=== PATIENT | female | born 1990 | race Hispanic/Latino ===

== ENCOUNTER → 2019-02-01 | Outpatient (CLI) | payer OTHER ==
[2019-02-01 12:57] LABS: HEMATOCRIT 31.9 % (36.0-47.0); HEMOGLOBIN 9.2 g/dl (12.0-15.5); MEAN CORPUSCULAR HEMOGLOBIN 21.1 pg (27.0-33.0); MEAN CORPUSCULAR HGB CONC 28.8 g/dl (32.0-36.5); MEAN CORPUSCULAR VOLUME 73.2 fl (80.0-96.0); PLATELET COUNT, AUTOMATED 318 10^3/uL (150-450); RED BLOOD COUNT 4.36 10^6/uL (4.00-5.40); WHITE BLOOD COUNT 7.9 10^3/uL (4.0-10.0)
== END ==
LOC: M LAB 12:08
PROVIDERS: ATTEND Obstetrics & Gynecology
DX: O99.03 Anemia complicating the puerperium (principal); Z3A.00 Weeks of gestation of pregnancy not specified

== ENCOUNTER 2020-09-10 13:17 | Emergency (ER) | payer OTHER ==
[~2020-09-10] VITALS: Ht 162.6 cm; Wt 96.0 kg
--- NOTE | 2020-09-10 13:52 | REP ---
INDICATION: Arm pain COMPARISON: None. TECHNIQUE: Three views right shoulder. FINDINGS: There is no evidence of acute fracture, dislocation, or intrinsic bone disease. IMPRESSION: No fracture or dislocation. <Electronically signed by Dinesh Neves > 09/10/20 [id number]
[2020-09-10] MEDS ORDERED: CYCL5TAB PO (14:24)
[2020-09-10] MEDS ORDERED: KETOROLAC 60MG 2ML VIAL IM ONE (14:30)
[2020-09-10 15:04] VITALS: BP 123/73
== END 2020-09-10 15:06 | disposition home or self-care (01) ==
LOC: M ED 13:17
DX: S46.011A Strain of muscle(s) and tendon(s) of the rotator cuff of right shoulder, initial encounter (principal); X58.XXXA Exposure to other specified factors, initial encounter; Y92.89 Other specified places as the place of occurrence of the external cause; M75.21 Bicipital tendinitis, right shoulder
CPT/HCPCS: 73030; 96372; 99283; J1885

== ENCOUNTER 2021-02-16 15:42 | Emergency (ER) | payer OTHER ==
[~2021-02-16] VITALS: Ht 154.9 cm; Wt 93.2 kg
[~2021-02-16 15:42] MED LIST: CYCL5TAB PO
[2021-02-16 15:43] VITALS: BP 131/83
[2021-02-16] MEDS ORDERED: GOOD200C PO (15:48)
== END 2021-02-16 20:39 | disposition home or self-care (01) ==
LOC: M ED 15:42
DX: H00.014 Hordeolum externum left upper eyelid (principal)

== ENCOUNTER 2021-07-30 13:28 | Emergency (ER) | payer OTHER ==
[~2021-07-30] VITALS: Ht 162.6 cm; Wt 90.9 kg
[~2021-07-30 13:28] MED LIST changes: +GOOD200C PO
--- OUTSIDE RECORDS SUMMARY | 2021-07-30 13:37 | CCD ---
Author Author [facility] Organization [facility] Address Unknown Phone Unavailable Care Team Providers Care Elevator Operator Name Role Phone Emerita ROLAND Unavailable Unavailable [facility], [facility] Unavailable Unavailable SHANNON KING Unavailable Unavailable Re-disclosure Warning The records that you are about to access may contain information from federally-assisted alcohol or drug abuse programs. If such information is present, then the following federally mandated warning applies: This information has been disclosed to you from records protected by federal confidentiality rules (42 CFR part 2). The federal rules prohibit you from making any further disclosure of this information unless further disclosure is expressly permitted by the written consent of the person to whom it pertains or as otherwise permitted by 42 CFR part 2. A general authorization for the release of medical or other information is NOT sufficient for this purpose. The Federal rules restrict any use of the information to criminally investigate or prosecute any alcohol or drug abuse patient.The records that you are about to access may contain highly sensitive health information, the redisclosure of which is protected by Article 27-F of the [facility] Public Health law. If you continue you may have access to information: Regarding HIV / AIDS; Provided by facilities licensed or operated by the [facility] Office of Mental Health; or Provided by the [facility] Office for People With Developmental Disabilities. If such information is present, then the following [facility] mandated warning applies: This information has been disclosed to you from confidential records which are protected by state law. State law prohibits you from making any further disclosure of this information without the specific written consent of the person to whom it pertains, or as otherwise permitted by law. Any unauthorized further disclosure in violation of state law may result in a fine or mcfp sentence or both. A general authorization for the release of medical or other information is NOT sufficient authorization for further disc losure. Encounters Encounter Providers Location Date Indications Data Source(s ) Outpatient Attender: BELKYS ROLAND 01/08/2021 03:24:16 PM EDT - 02/17/2021 03:43:00 PM EDT [facility] Patient discharged. Outpatient Attender: SHANNON KINGConsultant: CLINIC GUTHR IE 11/13/2020 09:32:00 AM EDT - 11/13/2020 10:32:00 AM EDT [facility] Patient discharged. Immunizations Vaccine Date Status Description Data Source(s) COVID-19 VACCINE Pfizer 10/22/2020 12:00:00 AM EST completed NYSIIS Vaccine Series Complete: NOThis Data was Submitted to [facility] Via [email or web address]. Medications No Information Insurance Providers Payer name Policy type / Coverage type Policy ID Covered green party ID Covered green party's relationship to dominguez Policy Dominguez Plan Information [facility] [id number] [facility] [id number] [facility] [id number] 01 [id number] [facility] - O/P [id number] 01 [id number] [facility] REG O [id number] S [id number] [facility] [id number] [facility] [id number] Problems, Conditions, and Diagnoses Code Display Name Description Problem Type Effective Dates Data Source(s) R201 Hypoesthesia of skin Hypoesthesia of skin Diagnosis 01/09/2021 10:10:00 AM EDT [facility] [id number] Incomplete rotator cuff tear or rupture of right shoulder, not specified as traumatic Incomplete rotator cuff tear or rupture of right shoulder, not specified as traumatic Diagnosis 11/13/2020 09:32:[address] [facility] [id number] Unspecified disorder of synovium and ten don, right shoulder Unspecified disorder of synovium and tendon, right shoulder Diagnosis 2020 09:32:00 AM T [facility] [id number] Pain in right shoulder Pain in right shoulder Diagnosi s 11/13/2020 09:32:00 AM EDT [facility] Surgeries/Procedures No Information Results ID Date Data Source [id number] 11/14/2020 10:11:00 AM EDT [facility] [address] [place] [address] PHONE: [phone] FAX: [phone] Name .................. : MARTHA OLIVERA Unique Acct Number.................. : [id number] ROOM. ................. : Number ................... : [id number] Stay type ............. : O/P Discharge Date......... ... : 11/13/20 Admit Date ....... .. : 11/13/20 Admit Phys .................... : FERNANDO CRISOSTOMO Date of ....... : 1990 Family Phys ................... : UNKNOWN Phone .................. : [phone] Age ................................ : 30 Film# .................. .:[id number] Sex ................................. : F Unsigned transcriptions are preliminary reports and do not represent a medical or legal document MRI UPPER EXT JOINT W CONT RT [id number] COMPLETE:11/13/20 15:02 [facility] 9236 (REASON FOR PROCESS: PAIN MRI OF THE RIGHT SHOULDER WITH CONTRAST: FINDINGS: There is contrast seen in the glenohumeral joint and around the humeral head status post earlier intra- articular contrast injection/arthrogram. There is some intermediate signal intensity at the supraspinatus tendon from partial/intrasubstance tears. There are linear defects with increased signal intensity on the T2- weighted images at the supraspinatus tendon from partial/intrasubstance tears. The labrum and biceps tendons are intact. No fracture or dislocation is identified. There is a type 2 acromion process. 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 Electronically Reviewed and Signed By Oneil Mcpherson MD , 11/14/20 10:12, TDS Transcribe Initials: MONAE , Transcribe Date: 11/14/20 02:16, Dictation Date: Copy for: FERNANDO ORTEGA Copy for: [address] [place] [address] Page 1 of 1 Name Value Range Interpretation Code Description Data Nely rce(s) Supporting Document(s) ID Date Data Source [id number] 11/14/2020 10:09:00 AM EDT [facility] [address] [place] [address] PHONE: [phone] FAX: [phone] Name .................. : MARTHA DANIELSMARISOL Calhoun Acct Number.................. : [id number] ROOM. ................. : MR Number ................... : [id number] Stay type ............. : O/P Discharge Date......... ... : 11/13/20 Admit Date ....... .. : 11/13/20 Admit Phys .................... : FERNANDO CRISOSTOMO Date of ....... : 1990 Family Phys ................... : UNKNOWN Phone .................. : [phone] Age ................................ : 30 Film# .................. .:[id number] Sex ................................. : F Unsigned transcriptions are preliminary reports and do not represent a medical or legal document INJECTION FOR SHOULDER ARTHRO [id number] COMPLETE:11/13/20 09:35 6937 (REASON FOR PROCESS: PAIN SHOULDER 1 VIEW RT [id number] COMPLETE:11/13/20 09:35 6939 (REASON FOR PROCESS: PAIN FLUOROSCOPIC EXAMINATION OF THE RIGHT SHOULDER FOR ARTHROGRAM, 11/13/20: FINDINGS: Internal Communications Specialist film shows no acute findings. PROCEDURE: The benefits and risks of the examination were discussed with the patient. The patient has given informed consent for the procedure. A time out was performed confirming the right shoulder is the proper shoulder for today's examination. The skin surface was marked using fluoroscopic guidance. The skin was prepped and dressed in normal sterile fashion. Superficial and deep Lidocaine administration was performed with a 25-gauge needle. A 22- gauge spinal needle was then placed and advanced under fluoroscopic guidance. The needle was passed into the joint space at which time iodinated contrast was administered to confirm proper placement. Approximately 5 cc of iodinated contrast was administered. Once the proper placement was confirmed, approximat celia 7 cc of 1:200 Gadolinium solution was administered. The needle was then removed. The skin was cleansed and bandaged. No complications were experienced during the procedure. Three images were obtained, 2 seconds of fluoroscopy. Page 1 of 2 [place] [address] PHONE: [phone] FAX: [phone] Name .................. : MARTHA Calhoun Acct Number.................. : [id number] ROOM. ................. : MR Number ................... : [id number] Stay type ............. : O/P Discharge Date......... ... : 11/13/20 Admit Date ......... : 11/13/20 Admit Phys .................... : FERNANDO CRISOSTOMO Date of ....... : 1990 Family Phys ................... : UNKNOWN Phone .................. : [phone] Age ................................ : 30 Film# .................. .:[id number] Sex ................................. : F Unsigned transcriptions are preliminary reports and do not represent a medical or legal document INJECTION FOR SHOULDER ARTHRO [id number] COMPLETE:11/13/20 09:35 6937 (REASON FOR PROCESS: PAIN SHOULDER 1 VIEW RT [id number] COMPLETE:11/13/20 09:35 6939 (REASON FOR PROCESS: PAIN Examination dictated by KIYA Elizabeth. Examination was reviewed with Oneil Mcpherson MD, radiologist at the time of this dictation. Electronically Reviewed and Signed By Oneil Mcpherson MD , 11/14/20 10:09, TDS Transcribe Initials: SSR, Transcribe Date: 11/13/20 13:25, Dictation Date: Copy for: FERNANDO ORTEGA Copy for: [address] [place] [address] REC Page 2 of 2 Name Value Range Interpretation Code Description Data Nely rce(s) Supporting Document(s) ID Date Data Source [id number] 11/14/2020 10:09:00 AM EDT [facility] [address] [place] [address] PHONE: [phone] FAX: [phone] Name .................. : THOMASAMIRAH DANIELSMARISOL Calhoun Acct Number.................. : [id number] ROOM. ................. : MR Number ................... : [id number] Stay type ............. : O/P Discharge Date......... ... : 11/13/20 Admit Date ....... .. : 11/13/20 Admit Phys .................... : FERNANDO CRISOSTOMO Date of ....... : 1990 Family Phys ................... : UNKNOWN Phone .................. : [phone] Age ................................ : 30 Film# .................. .:[id number] Sex ................................. : F Unsigned transcriptions are preliminary reports and do not represent a medical or legal document INJECTION FOR SHOULDER ARTHRO [id number] COMPLETE:11/13/20 09:35 6937 (REASON FOR PROCESS: PAIN SHOULDER 1 VIEW RT [id number] COMPLETE:11/13/20 09:35 6939 (REASON FOR PROCESS: PAIN FLUOROSCOPIC EXAMINATION OF THE RIGHT SHOULDER FOR ARTHROGRAM, 11/13/20: FINDINGS: Internal Communications Specialist film shows no acute findings. PROCEDURE: The benefits and risks of the examination were discussed with the patient. The patient has given informed consent for the procedure. A time out was performed confirming the right shoulder is the proper shoulder for today's examination. The skin surface was marked using fluoroscopic guidance. The skin was prepped and dressed in normal sterile fashion. Superficial and deep Lidocaine administration was performed with a 25-gauge needle. A 22- gauge spinal needle was then placed and advanced under fluoroscopic guidance. The needle was passed into the joint space at which time iodinated contrast was administered to confirm proper placement. Approximately 5 cc of iodinated contrast was administered. Once the proper placement was confirmed, approximat celia 7 cc of 1:200 Gadolinium solution was administered. The needle was then removed. The skin was cleansed and bandaged. No complications were experienced during the procedure. Three images were obtained, 2 seconds of fluoroscopy. Page [address] [place] [address] PHONE: [phone] FAX: [phone] Name .................. : MARTHA Calhoun Acct Number.................. : [id number] ROOM. ................. : Number ................... : [id number] Stay type ............. : O/P Discharge Date......... ... : 11/13/20 Admit Date ......... : 11/13/20 Admit Phys .................... : FERNANDO CRISOSTOMO Date of ....... : 1990 Family Phys ................... : UNKNOWN Phone .................. : [phone] Age ................................ : 30 Film# .................. .:[id number] Sex ................................. : F Unsigned transcriptions are preliminary reports and do not represent a medical or legal document INJECTION FOR SHOULDER ARTHRO [id number] COMPLETE:11/13/20 09:35 6937 (REASON FOR PROCESS: PAIN SHOULDER 1 VIEW RT [id number] COMPLETE:11/13/20 09:35 6939 (REASON FOR PROCESS: PAIN Examination dictated by KIYA Elizabeth. Examination was reviewed with Oneil Mcpherson MD, radiologist at the time of this dictation. Electronically Reviewed and Signed By Oneil Mcpherson MD , 11/14/20 10:09, TDS Transcribe Initials: SSR, Transcribe Date: 11/13/20 13:25, Dictation Date: Copy for: FERNANDO ORTEGA Copy for: [facility] MED REC Page 2 of 2 Name Value Range Interpretation Code Description Data Nely rce(s) Supporting Document(s) Procedure Social History No Information
--- OUTSIDE RECORDS SUMMARY | 2021-07-30 16:45 | CCD ---
Author Author [facility] Organization [facility] Address Unknown Phone Unavailable Care Team Providers Care Dulser Name Role Phone Emerita ROLAND Unavailable Unavailable [...] is protected by Article 27-F of the [facility] Public Health law. If you continue you may have access to information: Regarding HIV / AIDS; Provided by facilities licensed or operated by the [facility] Office of Mental Health; or Provided by the [facility] Office for People With Developmental Disabilities. If such information is present, then the following [facility] mandated warning applies: This information has been [...] law may result in a fine or assisted sentence or both. A general authorization for the release of medical or other information is NOT sufficient authorization for further disc losure. Encounters Encounter Providers Location Date Indications Data Source(s ) Outpatient Attender: BELKYS ROLAND 01/08/2021 03:24:16 PM EDT - 02/17/2021 03:43:00 PM EDT [facility] Patient discharged. Outpatient Attender: SHANNON KINGConsultant: CLINIC GUTHR IE 11/13/2020 09:32:00 AM EDT - 11/13/2020 10:32:00 AM EDT [facility] Patient discharged. Immunizations Vaccine Date Status Description Data Source(s) COVID-19 VACCINE Pfizer 10/22/2020 12:00:00 AM EST completed NYSIIS Vaccine Series Complete: NOThis Data was Submitted to [facility] Via [employer]. Medications No Information Insurance Providers Payer name Policy type / Coverage type Policy ID Covered constitution party ID Covered constitution party's relationship to dominguez Policy Dominguez Plan Information [facility] [id number] [facility] [id number] [facility] [id number] 01 [id number] [facility] - O/P [id number] 01 [id number] [facility] REG O [id number] S [id number] [facility] [id number] [facility] [id number] Problems, Conditions, and Diagnoses Code Display Name Description Problem Type Effective Dates Data Source(s) R201 Hypoesthesia of skin Hypoesthesia of skin Diagnosis 01/09/2021 10:10:00 AM EDT [facility] A08238 Incomplete rotator cuff tear or rupture of right shoulder, not specified as traumatic Incomplete rotator cuff tear or rupture of right shoulder, not specified as traumatic Diagnosis 11/13/2020 09:32:00 AM T [facility] [id number] Unspecified disorder of synovium and ten don, right shoulder Unspecified disorder of synovium and tendon, right shoulder Diagnosis 2020 09:32:00 AM T [facility] [id number] Pain in right shoulder Pain in right shoulder Diagnosi s 11/13/2020 09:32:00 AM EDT [facility] Surgeries/Procedures No Information Results ID Date Data Source [id number] 11/14/2020 10:11:00 AM EDT [facility] [address] [place] [address] PHONE: [phone] FAX: [phone] Name .................. : MARTHA OLIVERA Unique Acct Number.................. : [id number] ROOM. ................. : Number ................... : [id number] Stay type ............. : O/P Discharge Date......... ... : 11/13/20 Admit Date ....... .. : 11/13/20 Admit Phys .................... : FERNANDO CRISOSTOMO Date of ....... : 1990 Family Phys ................... : UNKNOWN Phone .................. : [phone] Age ................................ : 30 Film# .................. .:[id number] Sex ................................. : F Unsigned transcriptions are preliminary reports and do not represent a medical or legal document MRI UPPER EXT JOINT W CONT RT [id number] COMPLETE:11/13/20 15:02 [facility] 1236 (REASON FOR PROCESS: PAIN MRI OF THE [...] Date: Copy for: FERNANDO ORTEGA Copy for: [address] [place] [address] Page 1 of 1 Name Value Range Interpretation Code Description Data Nely rce(s) Supporting Document(s) ID Date Data Source [id number] 11/14/2020 10:09:00 AM EDT [facility] [address] [place] [address] PHONE: [phone] FAX: [phone] Name .................. : MARTHA DANIELSMARISOL Calhoun Acct Number.................. : [id number] ROOM. ................. : MR Number ................... : [id number] Stay type ............. : O/P Discharge Date......... ... : 11/13/20 Admit Date ....... .. : 11/13/20 Admit Phys .................... : FERNANDO CRISOSTOMO Date of ....... : 1990 Family Phys ................... : UNKNOWN Phone .................. : [phone] Age ................................ : 30 Film# .................. .:[id number] Sex ................................. : F Unsigned transcriptions are preliminary reports and do not represent a medical or legal document INJECTION FOR SHOULDER ARTHRO [id number] COMPLETE:11/13/20 09:35 6937 (REASON FOR PROCESS: PAIN SHOULDER 1 VIEW RT [id number] COMPLETE:11/13/20 09:35 6939 (REASON FOR PROCESS: PAIN FLUOROSCOPIC EXAMINATION OF THE RIGHT SHOULDER FOR ARTHROGRAM, 11/13/20: FINDINGS: Supervisor Speech film shows no acute findings. PROCEDURE: The [...] seconds of fluoroscopy. Page [address] of 2 [place] [address] PHONE: [phone] FAX: [phone] Name .................. : MARTHA Calhoun Acct Number.................. : [id number] ROOM. ................. : MR Number ................... : [id number] Stay type ............. : O/P Discharge Date......... ... : 11/13/20 Admit Date ......... : 11/13/20 Admit Phys .................... : FERNANDO CRISOSTOMO Date of ....... : 1990 Family Phys ................... : UNKNOWN Phone .................. : [phone] Age ................................ : 30 Film# .................. .:[id number] Sex ................................. : F Unsigned transcriptions are preliminary reports and do not represent a medical or legal document INJECTION FOR SHOULDER ARTHRO [id number] COMPLETE:11/13/20 09:35 6937 (REASON FOR PROCESS: PAIN SHOULDER 1 VIEW RT [id number] COMPLETE:11/13/20 09:35 6939 (REASON FOR PROCESS: PAIN Examination dictated by KIYA Elizabeth. Examination was reviewed with Oneil Mcpherson MD, radiologist at the time of this dictation. Electronically Reviewed and Signed By Oneil Mcpherson MD , 11/14/20 10:09, TDS Transcribe Initials: SSR, Transcribe Date: 11/13/20 13:25, Dictation Date: Copy for: FERNANDO ORTEGA Copy for: [address] [place] [address] REC Page 2 of 2 Name Value Range Interpretation Code Description Data Nely rce(s) Supporting Document(s) ID Date Data Source [id number] 11/14/2020 10:09:00 AM EDT [facility] [address] [place] [address] PHONE: [phone] FAX: [phone] Name .................. : THOMASAMIRAH DANIELSMARISOL Calhoun Acct Number.................. : [id number] ROOM. ................. : MR Number ................... : [id number] Stay type ............. : O/P Discharge Date......... ... : 11/13/20 Admit Date ....... .. : 11/13/20 Admit Phys .................... : FERNANDO CRISOSTOMO Date of ....... : 1990 Family Phys ................... : UNKNOWN Phone .................. : [phone] Age ................................ : 30 Film# .................. .:[id number] Sex ................................. : F Unsigned transcriptions are preliminary reports and do not represent a medical or legal document INJECTION FOR SHOULDER ARTHRO [id number] COMPLETE:11/13/20 09:35 6937 (REASON FOR PROCESS: PAIN SHOULDER 1 VIEW RT [id number] COMPLETE:11/13/20 09:35 6939 (REASON FOR PROCESS: PAIN FLUOROSCOPIC EXAMINATION OF THE RIGHT SHOULDER FOR ARTHROGRAM, 11/13/20: FINDINGS: Supervisor Speech film shows no acute findings. PROCEDURE: The [...] seconds of fluoroscopy. Page 1 of [address] [place] [address] PHONE: [phone] FAX: [phone] Name .................. : MARTHA Calhoun Acct Number.................. : [id number] ROOM. ................. : Number ................... : [id number] Stay type ............. : O/P Discharge Date......... ... : 11/13/20 Admit Date ......... : 11/13/20 Admit Phys .................... : FERNANDO CRISOSTOMO Date of ....... : 1990 Family Phys ................... : UNKNOWN Phone .................. : [phone] Age ................................ : 30 Film# .................. .:[id number] Sex ................................. : F Unsigned transcriptions are preliminary reports and do not represent a medical or legal document INJECTION FOR SHOULDER ARTHRO [id number] COMPLETE:11/13/20 09:35 6937 (REASON FOR PROCESS: PAIN SHOULDER 1 VIEW RT [id number] COMPLETE:11/13/20 09:35 6939 (REASON FOR PROCESS: PAIN Examination dictated by KIYA Elizabeth. Examination was reviewed with Oneil Mcpherson MD, radiologist at the time of this dictation. Electronically Reviewed and Signed By Oneil Mcpherson MD , 11/14/20 10:09, TDS Transcribe Initials: SSR, Transcribe Date: 11/13/20 13:25, Dictation Date: Copy for: FERNANDO ORTEGA Copy for: [facility] MED REC Page 2 of 2 Name Value Range Interpretation Code Description Data Nely rce(s) Supporting Document(s) Procedure Social History No Information
[2021-07-30] MEDS ORDERED: DERMABOND TOPICAL SKIN ADHESIVE TOP ONE (17:00)
[2021-07-30 17:29] VITALS: BP 107/67
== END 2021-07-30 17:30 | disposition home or self-care (01) ==
LOC: M ED 13:28
DX: S61.210A Laceration without foreign body of right index finger without damage to nail, initial encounter (principal); W26.0XXA Contact with knife, initial encounter; Y92.009 Unspecified place in unspecified non-institutional (private) residence as the place of occurrence of the external cause; Y93.G1 Activity, food preparation and clean up; Y99.9 Unspecified external cause status